=== PATIENT | female | born 1955 | race Caucasian/White ===

== ENCOUNTER 2021-03-10 16:22 | Inpatient (IN) | payer OTHER ==
[~2021-03-10] VITALS: Ht 167.6 cm; Wt 60.5 kg
[2021-03-10 17:00] LABS: Basophils # (auto) 0.1 10 ^3/uL (0-0.2); Basophils % (auto) 1.3 % (0.0-2.0); Eosinophils # (auto) 0.5 10 ^3/uL (0-0.8); Eosinophils % (auto) 7.3 % (0.0-7.0); Hematocrit 41.3 % (36.0-46.0); Hemoglobin 13.6 g/dL (12.2-16.2); Lymphocytes # (auto) 1.7 10 ^3/uL (0.4-5.4); Lymphocytes % (auto) 27.4 % (10.0-50.0); Mean Corpuscular Hemoglobin 30.8 pg (28.0-32.0); Mean Corpuscular Hgb Conc. 33.1 g/dL (32.0-36.0); Mean Corpuscular Volume 93.2 fL (80.0-100.0); Monocytes # (auto) 0.4 10 ^3/uL (0-1.3); Monocytes % (auto) 5.8 % (0.0-12.0); Neutrophils # (auto) 3.7 10 ^3/uL (1.6-8.6); Neutrophils % (auto) 58.2 % (37.0-80.0); Nucleated Red Blood Cells % 0.1 %; Red Blood Cells 4.43 10^6/uL (4.0-5.20); Red Cell Distribution Width 13.7 % (11.8-14.3); White Blood Cell 6.4 10^3/uL (4.4-10.8)
[2021-03-10] MEDS ORDERED: PROMETHAZINE HCL 25 MG/ML 1ML IV ONE (17:00)
[2021-03-10] MEDS ORDERED: diphenhdrAMINE HCL 50 MG/1 ML VL IV ONE (17:00)
[2021-03-10] MEDS ORDERED: KETOROLAC TROMETH 30 MG/ML 1ML VIAL IV ONE (17:00)
[2021-03-10 17:21] LABS: INR 1.03 (0.9-1.15); Partial Thromboplastin Time 27.3 sec (23.6-33.0)
[2021-03-10 17:31] LABS: Alanine Aminotransferase 17 U/L (13-56); Albumin 3.5 g/dL (3.4-5.0); Anion Gap 10 (5-15); Aspartate Aminotransferase 9 U/L (15-37); BUN/Creatinine Ratio 19.1; Blood Urea Nitrogen 17 mg/dL (7-18); Calcium 9.3 mg/dL (8.5-10.1); Carbon Dioxide 22 mmol/L (21-32); Chloride 99 mmol/L (98-107); GFR African American 82 mL/min; GFR Non-African American 68 mL/min; Glucose 84 mg/dL (74-106); Potassium 3.5 mmol/L (3.5-5.1); Sodium 131 mmol/L (136-145)
[2021-03-10 17:41] LABS: Alkaline Phosphatase 71 U/L (45-117); Bilirubin, Total 0.2 mg/dL (0.2-1.0); Total Protein 6.6 g/dL (6.4-8.2)
[2021-03-10] MEDS ORDERED: SUMAtriptan SUCCINATE 6 MG/0.5 ML VL SC ONE (18:15)
[2021-03-10] MEDS ORDERED: SODIUM CHLORIDE 0.9% 1,000 ML IV ONE (18:15)
[2021-03-10] MEDS ORDERED: GLUCAGON HYDROCHLORIDE (RDNA) 1 MG VIAL IM ONE (18:45)
[2021-03-10 19:42] LABS: Urine WBC None Seen /hpf (0 - 5)
[2021-03-10 20:02] LABS: Urine Bacteria NONE SEEN /hpf (None Seen); Urine Blood Negative /uL (Negative)
[2021-03-10 20:09] LABS: Alcohol, Urine < 3.0 mg/dL (0-10); Amphetamine Screen, Urine NEGATIVE (NEGATIVE); Barbiturate Scree,Urine NEGATIVE (NEGATIVE); Benzodiazephine Screen, Urine POSITIVE (NEGATIVE); Cannabinoid Screen, Urine NEGATIVE (NEGATIVE); Cocaine Screen, Urine NEGATIVE (NEGATIVE); Opiate Scree,Urine NEGATIVE (NEGATIVE); Phencyclidine Screen, Urine NEGATIVE (NEGATIVE)
[2021-03-10] MEDS ORDERED: fentaNYL CITRATE 100 MCG/2 ML VL IV ONE (21:15)
[2021-03-11] MEDS ORDERED: fentaNYL CITRATE 100 MCG/2 ML VL IV ONE (00:45)
[2021-03-11] MEDS ORDERED: KETOROLAC TROMETH 30 MG/ML 1ML VIAL IV ONE (03:15)
[2021-03-11] MEDS ORDERED: diphenhdrAMINE HCL 50 MG/1 ML VL IV ONE (03:15)
[2021-03-11] MEDS ORDERED: DOCUSATE SOD 100 MG CAP PO PRN (04:30)
[2021-03-11] MEDS ORDERED: SUMAtriptan SUCCINATE 6 MG/0.5 ML VL SC PRN (04:30)
[2021-03-11] MEDS ORDERED: ACETAMINOPHEN 325 MG TAB PO PRN (04:30)
[2021-03-11] MEDS ORDERED: NITROGLYCERIN 0.4 MG SL TAB SL PRN (05:00)
[2021-03-11] MEDS: SODIUM CHLOR 0.9% PF (SALINE LOCK) 10ML VIAL/SYR IV SCH ×3 (05:16→22:16)
[2021-03-11] MEDS: HYDROcodone-ACET 5/325MG TAB PO PRN ×5 (05:36→22:44)
[2021-03-11 06:08] LABS: Basophils # (auto) 0 10 ^3/uL (0-0.2); Basophils % (auto) 0.8 % (0.0-2.0); Eosinophils # (auto) 0.4 10 ^3/uL (0-0.8); Eosinophils % (auto) 6.9 % (0.0-7.0); Hematocrit 39.8 % (36.0-46.0); Lymphocytes # (auto) 1.8 10 ^3/uL (0.4-5.4); Lymphocytes % (auto) 32.8 % (10.0-50.0); Mean Corpuscular Hemoglobin 30.6 pg (28.0-32.0); Mean Corpuscular Hgb Conc. 32.6 g/dL (32.0-36.0); Mean Corpuscular Volume 93.8 fL (80.0-100.0); Monocytes # (auto) 0.5 10 ^3/uL (0-1.3); Monocytes % (auto) 8.1 % (0.0-12.0); Neutrophils # (auto) 2.9 10 ^3/uL (1.6-8.6); Neutrophils % (auto) 51.4 % (37.0-80.0); Red Blood Cells 4.25 10^6/uL (4.0-5.20); Red Cell Distribution Width 14.2 % (11.8-14.3); White Blood Cell 5.6 10^3/uL (4.4-10.8)
[2021-03-11 06:21] LABS: Albumin 2.9 g/dL (3.4-5.0); BUN/Creatinine Ratio 14.9; Calcium 8.3 mg/dL (8.5-10.1); Potassium 3.4 mmol/L (3.5-5.1)
[2021-03-11 06:26] LABS: Bilirubin, Total 0.2 mg/dL (0.2-1.0); Total Protein 5.6 g/dL (6.4-8.2)
[2021-03-11 09:00] VITALS: BP 141/71
[2021-03-11] MEDS ORDERED: POTASSIUM CHL 20 Meq TABLET PO ONE (09:15)
[2021-03-11] MEDS ORDERED: CLON-853 PO (09:31)
[2021-03-11] MEDS ORDERED: VENL37.572 PO (09:31)
[2021-03-11] MEDS ORDERED: PANT40T PO (09:31)
[2021-03-11] MEDS ORDERED: LOSA100T33 PO (09:31)
[2021-03-11] MEDS ORDERED: VORT1TAB3 PO (09:31)
[2021-03-11] MEDS ORDERED: LEVO125T PO (09:31)
[2021-03-11] MEDS: PANTOPRAZOLE 40 MG/10 ML VIAL INJ IV SCH (10:08)
[2021-03-11] MEDS: ASPirin 81 mg TAB PO SCH (10:10)
[2021-03-11] MEDS ORDERED: PROCHLORPERAZINE EDISYLATE 5 MG/ML 2ML VIAL IV ONE (11:15)
[2021-03-11] MEDS ORDERED: NITROGLYCERIN 0.4MG/HR TOPICAL PATCH TD ONE (11:30)
[2021-03-11 13:00] VITALS: BP 141/71
[2021-03-11] MEDS: LEVOTHYROXINE SODIUM 100 MCG TAB PO SCH (14:02)
[2021-03-11] MEDS: clonazePAM 0.5 MG TAB PO PRN (15:45)
[2021-03-11 17:00] VITALS: BP 157/72
[2021-03-11 22:00] VITALS: BP 159/85
[2021-03-11] MEDS ORDERED: ATORVASTATIN 20 MG TAB PO SCH (22:00)
[2021-03-11] MEDS: VENLAFAXINE HCL 37.5MG TABLET PO SCH (22:14)
[2021-03-11] MEDS: ATORVASTATIN 20 MG TAB PO SCH (22:15)
[2021-03-11] MEDS ORDERED: TEMAZEPAM 15 MG CAP PO ONE (22:30)
[2021-03-12] VITALS (7 sets, daily range): BP systolic 144–188; BP diastolic 70–88
[2021-03-12] MEDS: clonazePAM 0.5 MG TAB PO PRN ×2 (03:48→19:46)
[2021-03-12] MEDS: HYDROcodone-ACET 5/325MG TAB PO PRN ×4 (04:55→19:47)
[2021-03-12] MEDS: SODIUM CHLOR 0.9% PF (SALINE LOCK) 10ML VIAL/SYR IV SCH ×3 (06:47→21:58)
[2021-03-12] MEDS: LEVOTHYROXINE SODIUM 100 MCG TAB PO SCH (06:48)
[2021-03-12 07:48] LABS: Basophils # (auto) 0.1 10 ^3/uL (0-0.2); Basophils % (auto) 1.5 % (0.0-2.0); Eosinophils # (auto) 0.5 10 ^3/uL (0-0.8); Eosinophils % (auto) 10.1 % (0.0-7.0); Hematocrit 44.4 % (36.0-46.0); Hemoglobin 14.4 g/dL (12.2-16.2); Lymphocytes # (auto) 1.7 10 ^3/uL (0.4-5.4); Lymphocytes % (auto) 32.7 % (10.0-50.0); Mean Corpuscular Hemoglobin 30.7 pg (28.0-32.0); Mean Corpuscular Hgb Conc. 32.3 g/dL (32.0-36.0); Mean Corpuscular Volume 94.8 fL (80.0-100.0); Monocytes # (auto) 0.4 10 ^3/uL (0-1.3); Monocytes % (auto) 7.2 % (0.0-12.0); Neutrophils # (auto) 2.5 10 ^3/uL (1.6-8.6); Neutrophils % (auto) 48.5 % (37.0-80.0); Nucleated Red Blood Cells % 0.2 %; Red Blood Cells 4.68 10^6/uL (4.0-5.20); Red Cell Distribution Width 14.3 % (11.8-14.3); White Blood Cell 5.2 10^3/uL (4.4-10.8)
[2021-03-12 07:58] LABS: Albumin 3.9 g/dL (3.4-5.0); Calcium 9.6 mg/dL (8.5-10.1); Potassium 3.9 mmol/L (3.5-5.1)
[2021-03-12 08:01] LABS: BUN/Creatinine Ratio 10.6; Bilirubin, Total 0.2 mg/dL (0.2-1.0)
[2021-03-12] MEDS ORDERED: hydrALAZINE HCL 20 MG/ML VL IV PRN (08:30)
[2021-03-12] MEDS: ASPirin 81 mg TAB PO SCH (09:31)
[2021-03-12] MEDS: VENLAFAXINE HCL 37.5MG TABLET PO SCH ×2 (09:32→21:59)
[2021-03-12] MEDS: PANTOPRAZOLE 40 MG/10 ML VIAL INJ IV SCH (09:32)
[2021-03-12] MEDS: METOPROLOL SUCCINATE XL 50 MG TAB PO SCH (09:35)
[2021-03-12] MEDS: ATORVASTATIN 20 MG TAB PO SCH (21:59)
[2021-03-12] MEDS ORDERED: traZODone HCL 50 MG TAB PO SCH (22:00)
[2021-03-13] VITALS (7 sets, daily range): BP systolic 145–177; BP diastolic 77–89
[2021-03-13] MEDS: HYDROcodone-ACET 5/325MG TAB PO PRN ×4 (00:18→15:14)
[2021-03-13] MEDS: ONDANSETRON HCL 4 MG/2 ML VIAL IV PRN ×3 (02:54→15:14)
[2021-03-13] MEDS: SODIUM CHLOR 0.9% PF (SALINE LOCK) 10ML VIAL/SYR IV SCH ×2 (06:00→14:00)
[2021-03-13] MEDS: LEVOTHYROXINE SODIUM 100 MCG TAB PO SCH (06:55)
[2021-03-13] MEDS ORDERED: ADENOSINE 51 MG in GIVE UN-DILUTED 0 ML IV STA (08:10)
[2021-03-13] MEDS: PANTOPRAZOLE 40 MG/10 ML VIAL INJ IV SCH (10:00)
[2021-03-13] MEDS: METOPROLOL SUCCINATE XL 50 MG TAB PO SCH (10:00)
[2021-03-13] MEDS: VENLAFAXINE HCL 37.5MG TABLET PO SCH (10:00)
[2021-03-13] MEDS: ASPirin 81 mg TAB PO SCH (10:00)
[2021-03-13] MEDS ORDERED: diphenhdrAMINE HCL 50 MG/1 ML VL IV ONE (11:45)
[2021-03-13] MEDS ORDERED: METOCLOPRAMIDE HCL 5MG/ml INJ 2ml VIAL IV ONE (11:45)
[2021-03-13] MEDS ORDERED: KETOROLAC TROMETH 30 MG/ML 1ML VIAL IV PRN (11:45)
== END 2021-03-13 20:15 | disposition home or self-care (01) | DRG 291 ==
LOC: ER 16:22 → TELE 03-11 05:02 → TELE-WESTW 03-11 08:48
PROVIDERS: ADMIT Nurse Practitioner Family; ATTEND Internal Medicine
DX: I11.0 Hypertensive heart disease with heart failure (principal); I50.33 Acute on chronic diastolic (congestive) heart failure; I95.9 Hypotension, unspecified; R07.89 Other chest pain; G43.909 Migraine, unspecified, not intractable, without status migrainosus; E03.9 Hypothyroidism, unspecified; E87.6 Hypokalemia; Z20.822 Contact with and (suspected) exposure to COVID-19; E78.5 Hyperlipidemia, unspecified; F32.A Depression, unspecified; F41.9 Anxiety disorder, unspecified; R00.1 Bradycardia, unspecified; Z88.5 Allergy status to narcotic agent; Z90.710 Acquired absence of both cervix and uterus; Z88.0 Allergy status to penicillin; Z90.49 Acquired absence of other specified parts of digestive tract
CPT/HCPCS: 36415; 70450; 71045; 78452; 80053; 80061; 80307; 81001; 83880; 84443; 84484; 85025; 85610; 85730; 87426; 93005; 93017; 93306; 96361; 96372; 96374; 96375; 96376; C9113; G0378; J0153; J1885; J2405

== ENCOUNTER 2021-08-28 09:48 | Emergency (ER) | payer OTHER ==
[~2021-08-28] VITALS: Ht 167.6 cm; Wt 68.0 kg
[~2021-08-28 09:48] MED LIST: CLON-853 PO; LEVO125T PO; LOSA100T33 PO; PANT40T PO; VENL37.572 PO; VORT1TAB3 PO
[2021-08-28 10:23] LABS: Mean Corpuscular Volume 78.6 fL (80.0-100.0); Monocytes # (auto) 0.2 10 ^3/uL (0-1.3); Nucleated Red Blood Cells % 0.1 %
[2021-08-28 10:25] LABS: Basophils # (auto) 0 10 ^3/uL (0-0.2); Basophils % (auto) 0.7 % (0.0-2.0); Eosinophils # (auto) 0 10 ^3/uL (0-0.8); Eosinophils % (auto) 0.7 % (0.0-7.0); Hematocrit 36.6 % (36.0-46.0); Hemoglobin 11.8 g/dL (12.2-16.2); Lymphocytes # (auto) 0.9 10 ^3/uL (0.4-5.4); Mean Corpuscular Hemoglobin 25.4 pg (28.0-32.0); Mean Corpuscular Hgb Conc. 32.3 g/dL (32.0-36.0); Monocytes % (auto) 3.2 % (0.0-12.0); Neutrophils # (auto) 5.5 10 ^3/uL (1.6-8.6); Neutrophils % (auto) 82.4 % (37.0-80.0); Red Blood Cells 4.65 10^6/uL (4.0-5.20); White Blood Cell 6.6 10^3/uL (4.4-10.8)
[2021-08-28 10:29] LABS: Urine Bacteria NONE SEEN /hpf (None Seen); Urine Blood Negative /uL (Negative); Urine Mucus FEW (None Seen); Urine Specific Gravity 1.033 (1.001-1.035); Urine WBC 1 /hpf (0 - 5)
[2021-08-28 10:45] LABS: Calcium 9.5 mg/dL (8.5-10.1); Potassium 3.1 mmol/L (3.5-5.1)
[2021-08-28 10:50] LABS: BUN/Creatinine Ratio 15.2; Bilirubin, Total 0.4 mg/dL (0.2-1.0)
[2021-08-28 10:57] VITALS: BP 100/59
[2021-08-28] MEDS ORDERED: ALPRAZolam 0.5 MG TAB PO ONE (11:15)
[2021-08-28] MEDS ORDERED: PROMETHAZINE HCL 25 MG/ML 1ML IM ONE (11:15)
[2021-08-28] MEDS ORDERED: HYDROcodone-ACET 5/325MG TAB PO ONE (11:45)
[2021-08-28] MEDS ORDERED: ACE3T PO (12:06)
[2021-08-28 14:44] LABS: Alcohol, Urine < 3.0 mg/dL (0-10); Amphetamine Screen, Urine NEGATIVE (NEGATIVE); Barbiturate Scree,Urine NEGATIVE (NEGATIVE); Cocaine Screen, Urine NEGATIVE (NEGATIVE); Phencyclidine Screen, Urine NEGATIVE (NEGATIVE)
[2021-08-28 14:52] LABS: Benzodiazephine Screen, Urine POSITIVE (NEGATIVE); Cannabinoid Screen, Urine NEGATIVE (NEGATIVE); Opiate Scree,Urine NEGATIVE (NEGATIVE)
== END 2021-08-28 12:03 | disposition home or self-care (01) ==
LOC: ER 09:48
DX: F41.9 Anxiety disorder, unspecified (principal); R51.9 Headache, unspecified; I10 Essential (primary) hypertension; Z90.49 Acquired absence of other specified parts of digestive tract; Z90.710 Acquired absence of both cervix and uterus
CPT/HCPCS: 36415; 80053; 80307; 81001; 84484; 85025; 93005; 96372; 99284; J2550